=== PATIENT | male | born 1990 | race African-American/Black ===

== ENCOUNTER 2019-03-16 13:24 | Emergency (ER) | payer SELFPAY ==
[~2019-03-16] VITALS: Ht 185.4 cm; Wt 74.8 kg
--- NOTE | 2019-03-16 13:49 | NUR ---
PT CAME IN TO ER FOR STD CHECK UP. PT HAD RECENTLY RECEIVED TREATMENT CLAIMING HE TOOK 2 PILLS FOR CHLAMYDIA. PT HAS 2 PAINLESS LESIONS ON HIS PENIS FOR A FEW DAYS. HAS NOT HAD ANY SEXUAL CONTACT SINCE THEN. AWAITING MD BECK.
[2019-03-16] MEDS ORDERED: AZITHROMYCIN 250 MG TABLET PO ONE (14:00)
[2019-03-16] MEDS ORDERED: CEFTRIAXONE 500 MG VIAL IM ONE (14:00)
[2019-03-16 14:08] LABS: APPEARANCE,URINE Clear (CLEAR); BILIRUBIN,URINE Negative (NEGATIVE); BLOOD, URINE Negative Ery/uL (NEGATIVE); COLOR,URINE Yellow (YELLOW); KETONES,URINE Negative (NEGATIVE); LEUKOCYTE ESTERASE ,URINE Negative (NEGATIVE); NITRITE, URINE Negative (NEGATIVE); PH,URINE 6.5 (5.0-8.0); PROTEIN,URINE Negative (NEGATIVE); UGLUCOSE Negative (NEGATIVE); UROBILINOGEN,URINE 0.2 EU/dL (0.2)
[2019-03-16] MEDS ORDERED: CEFTRIAXONE 500 MG VIAL ONE (14:19)
[2019-03-16] MEDS ORDERED: AZITHROMYCIN 250 MG TABLET ONE (14:19)
[2019-03-16] MEDS ORDERED: LIDOCAINE /MPF 1% VIAL 5 ML VIAL ONE (14:23)
--- NOTE | 2019-03-16 14:35 | NUR ---
Patient discharged to home in stable condition. Written and verbal after care instructions given. Patient verbalizes understanding of instruction. ARM BAND REMOVED
[2019-03-16 14:36] VITALS: BP 127/74
== END 2019-03-16 14:36 | disposition home or self-care (01) ==
LOC: ER 13:24
DX: Z20.2 Contact with and (suspected) exposure to infections with a predominantly sexual mode of transmission (principal)
CPT/HCPCS: 81001; 87491; 87591; 96372; 99283; J0696; J3490; 81000-TC